=== PATIENT | female | born 1970 ===

== ENCOUNTER 2023-02-19 17:53 | Emergency (ER) | payer SELFPAY ==
[~2023-02-19] VITALS: Ht 154 cm; Wt 77.0 kg
--- NOTE | 2023-02-19 18:05 | ED Abdominal Pain ---
General Chief Complaint: Chest Pain Stated Complaint: CP Nursing Triage Note: ARRIVED VIA EMS WITH COMPLAINTS OF CHEST PAIN AT 1615 TODAY WHILE MOVING. PT STATES HER BIRTHDAY IS . WHEN TOLD THERE WAS NOT 31 DAYS IN JUNE SHE STATES FAMILY IS COMING WHO CAN TELL US WHEN HER BDAY IS. Source of Information: Patient Exam Limitations: No Limitations (LEONA HANSON) History of Present Illness Date Seen by Provider: Feb 19, 2023 Time Seen by Provider: 18:02 Initial Comments Patient is a 52-year-old female with history of presents ED with upper abdominal pain. This started around 415. She states she was moving boxes at the time. Pain is described as sharp. No radiation. She has no shortness of breath. Denies of any nausea vomiting diarrhea. Denies history of similar type pain. Has not been able to eat since the pain. She did receive a full aspirin by EMS. She denies of any recent travels or surgeries. No known cardiac history or history of COPD, asthma or smoking. Denies of any medical problems. Denies of any recent travels or surgeries. Patient is speaking seed packer was used. Denies dysuria, materia, increased urine frequency, fever, chills, body aches (LEONA HANSON) Allergies and Home Medications Allergies Coded Allergies: No Known Drug Allergies (Unverified , 02/19/23) Patient Home Medication List Home Medication List Reviewed: Yes (LEONA HANSON) Review of Systems Review of Systems Constitutional: No chills, No diaphoresis, No fever, No malaise, No weakness EENTM: No Double Vision, No Eye Pain Respiratory: Denies Cough, Denies Orthopnea; Shortness of Air Cardiovascular: Chest Pain Gastrointestinal: Abdominal Pain; Denies Diarrhea, Denies Nausea Genitourinary: Denies Burning, Denies Discharge, Denies Drainage, Denies Frequency Musculoskeletal: No back pain, No joint pain Skin: No change in color (LEONA HANSON) All Other Systems Reviewed Negative Unless Noted: Yes (LEONA HANSON) Physical Exam Vital Signs Vital Signs - First Documented 02/19/23 17:53 Temp 36.8 Pulse 80 Resp 16 B/P (MAP) 131/73 (92) Pulse Ox 96 O2 Delivery Room Air (BRANDI WISEMAN DO) Vital Signs Capillary Refill : Less Than 3 Seconds (LEONA HANSON) Height/Weight/BMI Height: '" Weight: lbs. oz. kg; 32.00 BMI Method: General Appearance: WD/WN, no apparent distress HEENT: PERRL/EOMI, normal ENT inspection, TMs normal, pharynx normal Neck: non-tender, full range of motion, supple Respiratory: chest non-tender, lungs clear, normal breath sounds, no respiratory distress, no accessory muscle use Cardiovascular: regular rate, rhythm, no edema, no gallop Gastrointestinal: normal bowel sounds, soft, no organomegaly, tenderness (epiGastric tenderness.) Extremities: normal range of motion, non-tender, normal inspection Back: normal inspection, no CVA tenderness, no vertebral tenderness Neurologic/Psychiatric: handbag parts cutter II-XII nml as tested, no motor/sensory deficits, alert, normal mood/affect, oriented x 3 Skin: normal color, warm/dry (LEONA HANSON) Progress/Results/Core Measures Results/Orders Lab Results Laboratory Tests Test 02/19/23 17:59 Range/Units White Blood Count 10.4 4.3-11.0 10^3/uL Red Blood Count 4.82 3.80-5.11 10^6/uL Hemoglobin 13.9 11.5-16.0 g/dL Hematocrit 42 35-52 % Mean Corpuscular Volume 87 80-99 fL Mean Corpuscular Hemoglobin 29 25-34 pg Mean Corpuscular Hemoglobin Concent 33 32-36 g/dL Red Cell Distribution Width 12.8 10.0-14.5 % Platelet Count 278 130-400 10^3/uL Mean Platelet Volume 10.6 9.0-12.2 fL Immature Granulocyte % (Auto) 0 % Neutrophils (%) (Auto) 57 42-75 % Lymphocytes (%) (Auto) 33 12-44 % Monocytes (%) (Auto) 8 0-12 % Eosinophils (%) (Auto) 1 0-10 % Basophils (%) (Auto) 0 0-10 % Neutrophils # (Auto) 6.0 1.8-7.8 10^3/uL Lymphocytes # (Auto) 3.5 1.0-4.0 10^3/uL Monocytes # (Auto) 0.8 0.0-1.0 10^3/uL Eosinophils # (Auto) 0.1 0.0-0.3 10^3/uL Basophils # (Auto) 0.0 0.0-0.1 10^3/uL Immature Granulocyte # (Auto) 0.0 0.0-0.1 10^3/uL Prothrombin Time 12.3 12.2-14.7 SEC INR Comment 0.9 0.8-1.4 Activated Partial Thromboplast Time 20 L 24-35 SEC Sodium Level 139 135-145 MMOL/L Potassium Level 3.1 L 3.6-5.0 MMOL/L Chloride Level 106 98-107 MMOL/L Carbon Dioxide Level 23 21-32 MMOL/L Anion Gap 10 5-14 MMOL/L Blood Urea Nitrogen 16 7-18 MG/DL Creatinine 0.86 0.60-1.30 MG/DL Estimat Glomerular Filtration Rate 82 BUN/Creatinine Ratio 19 Glucose Level 173 H 70-105 MG/DL Calcium Level 9.1 8.5-10.1 MG/DL Corrected Calcium 9.3 8.5-10.1 MG/DL Magnesium Level 2.0 1.6-2.4 MG/DL Total Bilirubin 0.7 0.1-1.0 MG/DL Aspartate Amino Transf (AST/SGOT) 92 H 5-34 U/L Alanine Aminotransferase (ALT/SGPT) 64 H 0-55 U/L Alkaline Phosphatase 91 40-136 U/L Myoglobin 34.7 10.0-92.0 NG/ML Troponin I < 0.028 <0.028 NG/ML B-Type Natriuretic Peptide 37.4 <100.0 PG/ML Total Protein 7.4 6.4-8.2 GM/DL Albumin 3.7 3.2-4.5 GM/DL Lipase 41 8-78 U/L (BOWEN,BRANDI K DO) Vital Signs/I&O 02/19/23 02/19/23 17:53 20:25 Temp 36.8 Pulse 80 74 Resp 16 18 B/P (MAP) 131/73 (92) 113/70 Pulse Ox 96 98 O2 Delivery Room Air (BOWEN,BRANDI K DO) Blood Pressure Mean: 92 Comment Sinus rhythm, 69 bpm, QRS duration 89 MS, QTc 408 MS. (LEONA HANSON) Departure Communication (PCP) Differential diagnosis of gastritis, pancreatitis, cholecystitis, ACS, pericarditis. Patient is speaking. Complaining of upper abdominal pain acute onset this afternoon. She was lifting boxes at the time. No known cardiac history. Denies history of hypertension, diabetes, high cholesterol or smoking. History of . Patient was not eating at the time. Has not attempted to eat since the pain started. Due to location of pain, cardiac work- up with added CBC, CMP and lipase. Patient was not tachycardic, hypoxic or febrile. EKG showed normal sinus rhythm without evidence of ST elevation or depression. Troponin negative. BNP negative chest x-ray unremarkable. Received full aspirin by EMS. Tenderness to right upper and epigastric. CBC showed normal white blood count. Chemistry showed potassium 3.1. Received 40 mEq of potassium. Slight elevated liver enzymes. Normal lipase. CT abdomen and pelvis was positive for cholecystolithiasis. CT abdomen pelvis was otherwise unremarkable. Patient received IV fentanyl. Denies of any urinary symptoms. Patient is currently pain-free. Suspect that this is likely secondary to gastritis versus biliary colic. Discussed taking Tums, Pepcid at home. Discussed gallbladder diet changes. May consider Tylenol or ibuprofen as needed for pain. If any worsening pain she will need to return back to ED. Provided outpatient follow-up with general surgery for further evaluation such as ultrasound versus HIDA scan if this pain progress. Discussed avoiding fatty foods, spicy foods. Avoid eating out late at night. She states her diet has not been as good lately. Salt Manager was used. She feels comfortable to go home. Return precaution were discussed. Discussed follow-up with your PCP in 2 days for reevaluation. (LEONA HANSON) Impression Primary Impression: Cholecystolithiasis Disposition: HOME, SELF-CARE Condition: Stable Departure-Patient Inst. Decision time for Depature: 19:53 (LEONA HANSON) Referrals: [facility]/LULU ZULUAGA DO Patient Instructions: Gallbladder Diet, Gallstones Add. Discharge Instructions: Recommend avoiding fatty foods, spicy foods. Recommend follow-up with general surgery for further evaluation. May take some Tylenol or ibuprofen for pain. All discharge instructions reviewed with patient and/or family. Voiced understanding. ATTENDING PHYSICIAN NOTE: I WAS PHYSICALLY PRESENT ER PHYSICIAN, BUT I WAS NOT INVOLVED IN ANY DECISION MAKING OR ANY CARE OF THIS PATIENT, AND I AM NOT COLLABORATING PHYSICIAN. (BRANDI WISEMAN DO) LEONA HANSON Feb 19, 2023 18:05 BRANDI WISEMAN DO Feb 20, 2023 07:17
[2023-02-19 18:14] LABS: BASOPHILS % (AUTO) 0 % (0-10); EOSINOPHILS # (AUTO) 0.1 10^3/uL (0.0-0.3); EOSINOPHILS % (AUTO) 1 % (0-10); HEMATOCRIT 42 % (35-52); HEMOGLOBIN 13.9 g/dL (11.5-16.0); LYMPHOCYTES # (AUTO) 3.5 10^3/uL (1.0-4.0); LYMPHOCYTES % (AUTO) 33 % (12-44); MEAN CORPUSCULAR HEMOGLOBIN 29 pg (25-34); MEAN CORPUSCULAR HGB CONC 33 g/dL (32-36); MEAN CORPUSCULAR VOLUME 87 fL (80-99); MEAN PLATELET VOLUME 10.6 fL (9.0-12.2); MONOCYTES # (AUTO) 0.8 10^3/uL (0.0-1.0); MONOCYTES % (AUTO) 8 % (0-12); NEUTROPHILS % (AUTO) 57 % (42-75); PLATELET COUNT 278 10^3/uL (130-400); WHITE BLOOD COUNT 10.4 10^3/uL (4.3-11.0)
[2023-02-19 18:16] LABS: ALBUMIN 3.7 GM/DL (3.2-4.5); CHLORIDE 106 MMOL/L (98-107); POTASSIUM 3.1 MMOL/L (3.6-5.0); SODIUM 139 MMOL/L (135-145)
[2023-02-19 18:17] LABS: INR 0.9 (0.8-1.4); PROTHROMBIN TIME PATIENT 12.3 SEC (12.2-14.7)
[2023-02-19 18:18] LABS: CALCIUM 9.1 MG/DL (8.5-10.1)
[2023-02-19 18:19] LABS: GLUCOSE 173 MG/DL (70-105); TOTAL PROTEIN 7.4 GM/DL (6.4-8.2)
[2023-02-19 18:20] LABS: CARBON DIOXIDE 23 MMOL/L (21-32)
[2023-02-19 18:21] LABS: BILIRUBIN,TOTAL 0.7 MG/DL (0.1-1.0)
[2023-02-19 18:22] LABS: ALKALINE PHOSPHATASE 91 U/L (40-136)
[2023-02-19 18:23] LABS: CREATININE SERUM 0.86 MG/DL (0.60-1.30); GFR ESTIMATED 82
[2023-02-19 18:24] LABS: BUN/CREATININE RATIO 19
[2023-02-19 18:25] LABS: ALANINE AMINOTRANSFERASE 64 U/L (0-55)
[2023-02-19 18:26] LABS: LIPASE 41 U/L (8-78)
[2023-02-19] MEDS ORDERED: fentaNYL INJECTION 100 MCG/2 ML VIAL IVP STA (18:28)
--- NOTE | 2023-02-19 18:53 | Diagnostic Imaging Report ---
INDICATION: Chest pain Portable chest 6:36 PM Heart and mediastinum are normal. Lungs are clear. There are no effusions or pneumothoraces. IMPRESSION: No acute abnormalities in the chest. Dictated by: Dictated on workstation # [id number]
[2023-02-19] MEDS ORDERED: HOLD METFORMIN - RECEIVED CONTRAST 20 ML VIAL IV SCH (19:00)
[2023-02-19] MEDS ORDERED: NS 100 ML (IVPB) BAG IV ONE (19:00)
[2023-02-19] MEDS ORDERED: IOHEXOL 350 MG/ML 100 ML (OMNIPAQUE 350) VIAL IV ONE (19:00)
--- NOTE | 2023-02-19 19:32 | Diagnostic Imaging Report ---
PROCEDURE: CT abdomen and pelvis with contrast. TECHNIQUE: Multiple contiguous axial images were obtained through the abdomen and pelvis after administration of intravenous contrast. Auto Exposure Controls were utilized during the CT exam to meet ALARA standards for radiation dose reduction. All CT scans use one or more of the following dose optimizing techniques: automated exposure control, MA and/or KvP adjustment based on patient size and exam type or iterative reconstruction. INDICATION: Abdominal pain Lung bases are clear. Liver appears normal. There are several stones in the gallbladder. Pancreas is normal. Spleen is unremarkable. Adrenals are normal. Kidneys appear normal. The appendix is normal. Small bowel is not dilated. Colon is unremarkable. Uterus and ovaries appear normal. Urinary bladder is normal. There is no intraperitoneal free air or free fluid. IMPRESSION: Cholecystolithiasis. Dictated by: Dictated on workstation # [id number]
[2023-02-19 20:25] VITALS: BP 113/70
[2023-02-21] MEDS ORDERED: DOCU-143 PO (12:45)
[2023-02-21] MEDS ORDERED: ACHD5005 PO (12:45)
== END 2023-02-19 20:35 | disposition home or self-care (01) ==
LOC: ER 17:54 → EDBD 17:54 → ER 20:35
DX: K80.20 Calculus of gallbladder without cholecystitis without obstruction (principal); E87.6 Hypokalemia
CPT/HCPCS: 36415; 71045; 74177; 80053; 83690; 83735; 83874; 83880; 84484; 85025; 85610; 85730; 93005; 93041; 96374

== ENCOUNTER 2023-02-19 23:22 | Observation (INO) | payer SELFPAY ==
[~2023-02-19] VITALS: Ht 165.1 cm; Wt 93.6 kg
[2023-02-19] MEDS ORDERED: fentaNYL INJ 100 MCG/2 ML AMP IVP STA (23:42)
[2023-02-19] MEDS ORDERED: ONDANSETRON 4 MG/2 ML (SDV) Z0FRAN IVP ONE (23:45)
[2023-02-19] MEDS ORDERED: LACTATED RINGERS 1,000 ML IV ONE (23:45)
[2023-02-20] VITALS (7 sets, daily range): BP systolic 130–178; BP diastolic 81–89
[2023-02-20] MEDS: fentaNYL INJ 100 MCG/2 ML AMP IV PRN ×4 (02:15→16:04)
[2023-02-20] MEDS ORDERED: ONDANSETRON 4 MG/2 ML (SDV) Z0FRAN IV PRN (02:15)
[2023-02-20] MEDS: D5 1/2 NS W/KCL 20 MEQ/L 1,000 ML IV SCH ×4 (03:28→22:09)
[2023-02-20 05:48] LABS: BASOPHILS % (AUTO) 0 % (0-10); EOSINOPHILS % (AUTO) 1 % (0-10); HEMATOCRIT 42 % (35-52); HEMOGLOBIN 13.8 g/dL (11.5-16.0); LYMPHOCYTES # (AUTO) 1.5 10^3/uL (1.0-4.0); LYMPHOCYTES % (AUTO) 24 % (12-44); MEAN CORPUSCULAR HEMOGLOBIN 28 pg (25-34); MEAN CORPUSCULAR HGB CONC 33 g/dL (32-36); MEAN CORPUSCULAR VOLUME 86 fL (80-99); MONOCYTES # (AUTO) 0.6 10^3/uL (0.0-1.0); MONOCYTES % (AUTO) 10 % (0-12); NEUTROPHILS # (AUTO) 4.1 10^3/uL (1.8-7.8); NEUTROPHILS % (AUTO) 65 % (42-75); PLATELET COUNT 264 10^3/uL (130-400); WHITE BLOOD COUNT 6.3 10^3/uL (4.3-11.0)
[2023-02-20 05:59] LABS: ALBUMIN 3.5 GM/DL (3.2-4.5)
[2023-02-20 06:00] LABS: POTASSIUM 3.7 MMOL/L (3.6-5.0)
[2023-02-20 06:01] LABS: CALCIUM 8.9 MG/DL (8.5-10.1)
[2023-02-20 06:04] LABS: BILIRUBIN,TOTAL 1.4 MG/DL (0.1-1.0)
[2023-02-20 06:05] LABS: CREATININE SERUM 0.68 MG/DL (0.60-1.30)
[2023-02-20 06:06] LABS: INR 0.9 (0.8-1.4); PROTHROMBIN TIME PATIENT 12.5 SEC (12.2-14.7)
--- NOTE | 2023-02-20 06:16 | ED Abdominal Pain ---
General Chief Complaint: Abdominal/GI Problems Stated Complaint: CHOLELITHIASIS Nursing Triage Note: pt ambulatory to room. triage done with use of correspondence dictator. pt states she was diagnosed with gall stones earlier today. states she has had increased abdominal pain since being discharged home. pt states she also had nausea and an episode of vomiting. Sepsis Screen: No Definite Risk Source of Information: Patient (VIA ASSISTANT DISTRIBUTION MANAGER), Outreach And Education Social Worker (VIDEO ASSISTANT DISTRIBUTION MANAGER) History of Present Illness Date Seen by Provider: Feb 19, 2023 Time Seen by Provider: 23:44 Initial Comments PT ARRIVES VIA POV FROM HOME PT WAS SEEN EARLIER THIS EVENING IN ER FOR ABDOMINAL PAIN THAT BEGAN AROUND 161 TODAY SHE WAS DIAGNOSED WITH CHOLELITHIASIS, WAS GIVEN PAIN MEDICATION IN THE ER AND FELT MUCH BETTER, AND WAS GIVEN INSTRUCTIONS TO FOLLOW UP WITH SURGEON OUTPATIENT. HER LABS WERE FAIRLY UNREMARKABLE SINCE GETTING HOME, PT HAS HAD RETURN OF PAIN AND NAUSEA AND VOMITED X 1 NO FEVER NO HISTORY OF SIMILAR, PRIOR TO TODAY NO CHRONIC MEDICAL PROBLEMS AND HER ONLY SURGERY WAS A SHE HAD NOT HAD ANY PRIOR VISITS HERE BEFORE TODAY Allergies and Home Medications Allergies Coded Allergies: No Known Drug Allergies (Unverified , 02/19/23) Patient Home Medication List Home Medication List Reviewed: Yes Review of Systems Review of Systems Constitutional: no symptoms reported Gastrointestinal: See HPI, Abdominal Pain, Nausea, Vomiting Past Mywnony-Pyexmp-Ginoqw Hx Patient Social History Tobacco Use?: No Smoking Status: Never a Smoker Smokeless Tobacco Frequency: Never a User Use of E-Cig and/or Vaping dev: No Substance use?: No Alcohol Use?: No Pt feels they are or have been: No Immunizations Up To Date Influenza Vaccine Up-to-Date: No; Not Current Past Medical History Surgery/Hospitalization HX: Surgeries: Yes Section Respiratory: No Cardiac: No Reproductive Disorders: No Genitourinary: No Gastrointestinal: No Musculoskeletal: No Endocrine: No HEENT: No Cancer: No Psychosocial: No Integumentary: No Blood Disorders: No Physical Exam Vital Signs Vital Signs - First Documented 02/19/23 23:45 Pulse 77 Resp 19 B/P (MAP) 147/83 (104) Pulse Ox 99 Capillary Refill : Height/Weight/BMI Height: '" Weight: lbs. oz. kg; 34.33 BMI Method: General Appearance: WD/WN, other (MOANING, WAILING, HOLDING EPIGSTRIC AREA AND WALKING SLOWLY AND SLIGHTLY BENT AT WAIST. ) Respiratory: normal breath sounds, no respiratory distress, no accessory muscle use Cardiovascular: regular rate, rhythm, no murmur Gastrointestinal: soft; No distended; guarding (SOME); No rebound; tenderness (MODERATE EPIGASTRIC TENDERNESS); No hernia, No mass Extremities: normal inspection Back: no CVA tenderness Neurologic/Psychiatric: community planner II-XII nml as tested, no motor/sensory deficits, alert, oriented x 3 Skin: normal color (), warm/dry; No rash Progress/Results/Core Measures Results/Orders Lab Results Laboratory Tests Test 02/20/23 05:15 Range/Units White Blood Count 6.3 4.3-11.0 10^3/uL Red Blood Count 4.87 3.80-5.11 10^6/uL Hemoglobin 13.8 11.5-16.0 g/dL Hematocrit 42 35-52 % Mean Corpuscular Volume 86 80-99 fL Mean Corpuscular Hemoglobin 28 25-34 pg Mean Corpuscular Hemoglobin Concent 33 32-36 g/dL Red Cell Distribution Width 12.9 10.0-14.5 % Platelet Count 264 130-400 10^3/uL Mean Platelet Volume 11.0 9.0-12.2 fL Immature Granulocyte % (Auto) 0 % Neutrophils (%) (Auto) 65 42-75 % Lymphocytes (%) (Auto) 24 12-44 % Monocytes (%) (Auto) 10 0-12 % Eosinophils (%) (Auto) 1 0-10 % Basophils (%) (Auto) 0 0-10 % Neutrophils # (Auto) 4.1 1.8-7.8 10^3/uL Lymphocytes # (Auto) 1.5 1.0-4.0 10^3/uL Monocytes # (Auto) 0.6 0.0-1.0 10^3/uL Eosinophils # (Auto) 0.0 0.0-0.3 10^3/uL Basophils # (Auto) 0.0 0.0-0.1 10^3/uL Immature Granulocyte # (Auto) 0.0 0.0-0.1 10^3/uL Sodium Level 139 135-145 MMOL/L Potassium Level 3.7 3.6-5.0 MMOL/L Chloride Level 108 H 98-107 MMOL/L Carbon Dioxide Level 22 21-32 MMOL/L Anion Gap 9 5-14 MMOL/L Blood Urea Nitrogen 9 7-18 MG/DL Creatinine 0.68 0.60-1.30 MG/DL Estimat Glomerular Filtration Rate 105 BUN/Creatinine Ratio 13 Glucose Level 138 H 70-105 MG/DL Calcium Level 8.9 8.5-10.1 MG/DL Corrected Calcium 9.3 8.5-10.1 MG/DL Total Bilirubin 1.4 H 0.1-1.0 MG/DL Aspartate Amino Transf (AST/SGOT) 716 H 5-34 U/L Alanine Aminotransferase (ALT/SGPT) 393 H 0-55 U/L Alkaline Phosphatase 146 H 40-136 U/L Total Protein 7.0 6.4-8.2 GM/DL Albumin 3.5 3.2-4.5 GM/DL Amylase Level 42 25-125 U/L Lipase 31 8-78 U/L My Orders Orders - BRANDI WISEMAN DO Ed Iv/Invasive Line Start (02/19/23 23:42) Monitor-Rhythm Ecg Trace Only (02/19/23 23:42) Ed Iv/Invasive Line Start (02/19/23 23:42) Lactated Ringers (Lr 1000 Ml Iv Solution (02/19/23 23:45) Fentanyl Inj (Sublimaze Injection) (02/19/23 23:42) Ondansetron Injection (Zofran Injectio (02/19/23 23:45) Medications Given in ED Current Medications Medications Dose Ordered Sig/Seth Route Start Time Stop Time Status Last Admin Dose Admin Fentanyl Citrate 50 mcg Q2H PRN IV 02/20/23 02:15 02/20/23 04:19 50 MCG Lactated Ringer's 1,000 ml @ 0 mls/hr Q0M ONCE IV 02/19/23 23:45 02/19/23 23:46 DC 02/19/23 23:56 999 MLS/HR Ondansetron HCl 4 mg ONCE ONCE IVP 02/19/23 23:45 02/19/23 23:46 DC 02/19/23 23:55 4 MG Vital Signs/I&O 02/19/23 02/20/23 02/20/23 02/20/23 23:45 00:58 00:58 03:23 Temp 36.7 36.2 Pulse 77 68 70 Resp 19 20 20 B/P (MAP) 147/83 (104) 173/82 (112) 178/89 (118) Pulse Ox 99 97 97 97 O2 Delivery Room Air Room Air Room Air 02/20/23 02/20/23 04:35 04:50 Temp 36.2 Pulse 64 Blood Pressure Mean: 118 Progress Progress Note : Progress Note COMPUTER SYSTEM SHUT DOWN DURING PT'S ER STAY GIVEN: -IV FLUIDS -FENTANYL -ZOFRAN SYMPTOMS IMPROVED WITH THE ABOVE MEDICATIONS VITALS STABLE, AND PT IS AFEBRILE REVIEWED PRIOR ER RECORD INCLUDING LABS AND CT SCAN. CBC WAS NORMAL CMP WITH K 3.1, NORMAL BILIRUBIN 0.7, NORMAL LIPASE. VERY MINIMALLY ELEVATED LFT'S -AST 92, ALT 64. TROPONIN NEGATIVE LABS NOT REPEATED AT THIS TIME, PT WAS JUST DISMISSED A SHORT TIME AGO. CT SCAN REPORT OF GALLSTONES, WITH NO MENTION OF STONES IN BILE DUCT OR ANY DUCTAL DILATION OR EVIDENCE OF INFLAMMATION OF GALLBLADDER OR WALL THICKENING. NO OTHER VISITS HERE DISCUSSED NEED FOR ADMIT AND PT IS AGREEABLE TO PLAN Departure Communication (Admissions) 1949--SPOKE WITH DR. REHMAN, SURGEON, ACCEPTS PT FOR ADMIT Impression Primary Impression: Cholelithiasis Additional Impression: Intractable abdominal pain Disposition: ADMITTED INPATIENT Condition: Improved Admissions Decision to Admit Reason: Admit from ER (General) Decision to Admit/Date: Feb 19, 2023 Time/Decision to Admit Time: 23:50 Departure-Patient Inst. Referrals: NO,LOCAL PHYSICIAN (PCP) Primary Care Physician BRANDI WISEMAN DO Feb 20, 2023 06:16
[2023-02-20] MEDS: PANTOPRAZOLE 40 MG (PROTONIX) VIAL IV SCH (08:56)
[2023-02-20] MEDS ORDERED: PIPERACILLIN SODIUM/TAZOBACTAM 4.5 GM in NS (IVPB) 100 ML IV NR (16:00)
--- NOTE | 2023-02-20 17:41 | History & Physical-Surgical ---
History of Present Illness History of Present Illness Reason for visit/HPI Chief complaint epigastric abdominal pain Patient is a 52-year-old female who yesterday began having pain in the epigastric area. Nothing seems brought it on. Nothing seems to make it better. It is a gnawing type pain. Patient states that the pain was a 10 out of 10. Pain medication did help some. Patient had a CT scan that was consistent with cholelithiasis. No other findings. She had some nausea and emesis. She has been n.p.o. She has not had any prior episodes of her symptoms like this. She is denies any fever sweats chills shortness of breath or chest pain. Date of Admission Feb 20, 2023 at 00:56 Date Seen by a Provider: Feb 20, 2023 Time Seen by a Provider: 15:30 I consulted on this patient on 02/20/23 17:40 Attending Physician Bonnie,Local Physician Admitting Physician Admitting Physician: Lulu Salinas DO Attending Physician: Lulu Salinas DO Consult Allergies and Home Medications Allergies Coded Allergies: No Known Drug Allergies (Unverified , 02/19/23) Patient Home Medication List Home Medication List Reviewed: Yes Past Udgulpm-Fddbrh-Knfxqc Hx Patient Social History Smoking Status: Never a Smoker Alcohol Use?: No Surgeries History of Surgeries: Yes Surgeries: Section Respiratory History of Respiratory Disorde: No Cardiovascular History of Cardiac Disorders: No Reproductive System Hx Reproductive Disorders: No Genitourinary History of Genitourinary Disor: No Gastrointestinal History of Gastrointestinal Di: No Musculoskeletal History of Musculoskeletal Dis: No Endocrine History of Endocrine Disorders: No HEENT History of HEENT Disorders: No Cancer History of Cancer: No Psychosocial History of Psychiatric Problem: No Integumentary History of Skin or Integumenta: No Blood Transfusions History of Blood Disorders: No Reviewed Nursing Assessment Reviewed/Agree w Nursing PMH: Yes Family Medical History Significant Family History: No Pertinent Family Hx Review of Systems Constitutional: No fever, No weakness EENTM: No blurred vision, No double vision Respiratory: No dyspnea on exertion, No short of breath Cardiovascular: No chest pain, No palpitations Gastrointestinal: abdominal pain (epigastric), nausea, vomiting Genitourinary: No decreased output, No discharge Musculoskeletal: No back pain, No joint pain Skin: No change in color, No change in hair/nails Psychiatric/Neurological: Denies Anxiety, Denies Depressed, Denies Emotional Problems All Other Systems Reviewed Negative Unless Noted: Yes (Negative excepted noted.) Physical Exam Vital Signs Vital Signs - First Documented 02/19/23 23:45 Pulse 77 Resp 19 B/P (MAP) 147/83 (104) Pulse Ox 99 Capillary Refill : Height, Weight, BMI Height: '" Weight: lbs. oz. kg; 34.33 BMI Method: General Appearance: No Apparent Distress, WD/WN HEENT: PERRL/EOMI, Normal ENT Inspection Neck: Normal Inspection, Non Tender Respiratory: Chest Non Tender, No Accessory Muscle Use, No Respiratory Distress Cardiovascular: Regular Rate, Rhythm, No JVD Gastrointestinal: Soft, Tenderness (epigastric area) Rectal: Deferred Back: No CVA Tenderness, No Vertebral Tenderness Extremity: Normal Inspection, Normal Range of Motion, Non Tender Neurologic/Psychiatric: Alert, Oriented x3, No Motor/Sensory Deficits Skin: Normal Color, Warm/Dry Lymphatic: No Adenopathy Data Review Labs Laboratory Tests 02/20/23 05:15: White Blood Count 6.3, Red Blood Count 4.87, Hemoglobin 13.8, Hematocrit 42, M andreas Corpuscular Volume 86, Mean Corpuscular Hemoglobin 28, Mean Corpuscular Hemoglobin Concent 33, Red Cell Distribution Width 12.9, Platelet Count 264, Mean Platelet Volume 11.0, Immature Granulocyte % (Auto) 0, Neutrophils (%) (Auto) 65, Lymphocytes (%) (Auto) 24, Monocytes (%) (Auto) 10, Eosinophils (%) (Auto) 1, Basophils (%) (Auto) 0, Neutrophils # (Auto) 4.1, Lymphocytes # (Auto) 1.5, Monocytes # (Auto) 0.6, Eosinophils # (Auto) 0.0, Basophils # (Auto) 0.0, Immature Granulocyte # (Auto) 0.0, Prothrombin Time 12.5, INR Comment 0.9, Activated Partial Thromboplast Time 25, Sodium Level 139, Potassium Level 3.7, Chloride Level 108H, Carbon Dioxide Level 22, Anion Gap 9, Blood Urea Nitrogen 9, Creatinine 0.68, Estimat Glomerular Filtration Rate 105, BUN/Creatinine Ratio 13, Glucose Level 138H, Calcium Level 8.9, Corrected Calcium 9.3, Total Bilirubin 1.4H, Aspartate Amino Transf (AST/SGOT) 716H, Alanine Aminotransferase (ALT/SGPT) 393H, Alkaline Phosphatase 146H, Total Protein 7.0, Albumin 3.5, Amylase Level 42, Lipase 31 Assessment/Plan Assessment/Plan Admission Diagonsis epigastric pain cholelithiasis Admission Status: Observation Assessment/Plan epigastric pain cholelithiasis discussed risk and benefits of laparoscopic cholecystectomy with intraoperative cholangiogram all other indicated procedures will place on Zosyn NPO after midnight surgery tomorrow. IV fluids pain control incentive spirometery LULU SALINAS DO Feb 20, 2023 17:40
[2023-02-20] MEDS: PIPERACILLIN SODIUM/TAZOBACTAM 4.5 GM in NS (IVPB) 100 ML IV SCH (22:07)
[2023-02-21] VITALS (16 sets, daily range): BP systolic 143–189; BP diastolic 82–93
[2023-02-21] MEDS: D5 1/2 NS W/KCL 20 MEQ/L 1,000 ML IV SCH ×3 (05:27→16:08)
[2023-02-21] MEDS: PIPERACILLIN SODIUM/TAZOBACTAM 4.5 GM in NS (IVPB) 100 ML IV SCH ×3 (05:37→22:54)
[2023-02-21] MEDS: PANTOPRAZOLE 40 MG (PROTONIX) VIAL IV SCH (07:54)
[2023-02-21] MEDS ORDERED: LIDOCAINE/EPI 1%-1:100,000 (XYLOCAINE) 20ML ONE (10:14)
--- NOTE | 2023-02-21 10:48 | Progress Note - Surgery ---
Subjective Date Seen by a Provider: Feb 21, 2023 Time Seen by a Provider: 09:22 Subjective/Events-last exam Feeling a little better. Little bit of pain compared to yesterday. NPO. Ready for surgery. Denies n/v fever sweats chills shortness of breath or chest pain. Objective Exam Vital Signs Date Time Temp Pulse Resp B/P (MAP) Pulse Ox O2 Delivery O2 Flow Rate FiO2 02/21/23 07:58 36.4 75 18 145/88 (107) 98 Room Air 02/21/23 07:30 69 02/21/23 03:48 36.8 63 18 143/85 (104) 94 Room Air 02/21/23 01:00 70 02/20/23 23:13 36.7 66 18 135/83 (100) 97 Room Air 02/20/23 21:47 Room Air 02/20/23 19:38 99 Room Air 02/20/23 19:14 36.9 70 18 130/81 (97) 95 Room Air 02/20/23 19:00 69 02/20/23 15:19 36.8 68 18 150/85 (106) 96 Room Air 02/20/23 13:00 70 02/20/23 11:23 36.3 65 18 147/85 (105) 95 Room Air I & O 02/21/23 07:00 Intake Total 500 ml Balance 500 ml Capillary Refill : General Appearance: No Apparent Distress, WD/WN HEENT: PERRL/EOMI, Normal ENT Inspection Neck: Normal Inspection, Non Tender Respiratory: Chest Non Tender, No Accessory Muscle Use, No Respiratory Distress Cardiovascular: Regular Rate, Rhythm, No JVD Gastrointestinal: soft; No distended, No rebound; tenderness (MODERATE EPIGASTRIC TENDERNESS); No hernia, No mass Extremity: Normal Inspection, Normal Range of Motion, Non Tender Neurologic/Psychiatric: Alert, Oriented x3, No Motor/Sensory Deficits Skin: Normal Color, Warm/Dry Lymphatic: No Adenopathy Assessment/Plan Assessment/Plan Assessment/Plan epigastric pain cholelithiasis discussed risk and benefits of laparoscopic cholecystectomy with intraoperative cholangiogram all other indicated procedures On Zosyn NPO surgery today IV fluids pain control incentive spirometery LULU REHMAN DO Feb 21, 2023 10:48
[2023-02-21] MEDS: LACTATED RINGERS 1,000 ML IV PRN ×2 (11:23→12:53)
[2023-02-21] MEDS ORDERED: ONDANSETRON 4 MG/2 ML (SDV) Z0FRAN ONE (11:29)
[2023-02-21] MEDS ORDERED: proPOfol 200 MG/20 ML (DIPRIVAN) VIAL IV ONE (11:29)
[2023-02-21] MEDS ORDERED: fentaNYL INJ 100 MCG/2 ML AMP ONE (11:29)
[2023-02-21] MEDS ORDERED: ROCURONIUM 50 MG/5 ML (ZEMURON) VIAL IV ONE (11:29)
[2023-02-21] MEDS ORDERED: SEVOFLURANE (ULTANE) 15 ML INHAL SOLN ONE ×2 (11:29→12:47)
[2023-02-21] MEDS ORDERED: LIDOCAINE PF 2% 5 ML (XYLOCAINE) VIAL ONE (11:29)
[2023-02-21] MEDS ORDERED: MIDAZOLAM 2 MG/2 ML (VERSED) VIAL ONE (11:29)
[2023-02-21] MEDS ORDERED: PHENYLEPHRINE 100 MCG/ML 10 ML (ANESTHESIA) SYR ONE (12:01)
[2023-02-21] MEDS ORDERED: LIDOCAINE/EPI 1%-1:100,000 (XYLOCAINE) 20ML INJ ONE (12:20)
[2023-02-21] MEDS ORDERED: IOHEXOL 300 MG/ML 30 ML (OMNIPAQUE 300) VIAL INJ ONE (12:21)
--- NOTE | 2023-02-21 12:43 | Progress Note-Post Operative ---
Post-Operative Progess Note Surgeon (s)/Supervisor Travel Trailer (s) Surgeon LULU REHMAN DO Supervisor Travel Trailer: Dr. Ferraro to assist in retraction dissection and closure. Pre-Operative Diagnosis cholelithiasis Post-Operative Diagnosis cholelithiasis, cholecystitis Procedure & Operative Findings Date of Procedure 02/21/23 Procedure Performed/Findings PROCEDURE: Laparoscopic cholecystectomy with intraoperative cholangiogram. COMPLICATIONS: None. PROCEDURE: The patient was taken to the operating suite and was prepped and draped in sterile fashion. A surgical pause was performed. Just superior to the umbilicus, a 12 mm incision was made. Dissection was taken down to the fascia, which was then scored and grasped with a Yousuf and the abdomen was then entered. A 0 Vicryl suture was placed in a rzjulv-by-ohktb fashion and a Mills trocar was placed and secured. Pneumoperitoneum was achieved. A 5mm trochar place in the subxyphoid and 2 in the right upper quadrant. The gallbladder was then grasped and elevated. Distended gallbladder and inflamed. Adhesions to the gallbladder were taken down with cautery/blunt dissection. The cystic duct, and cystic artery were then dissected out. Clip was placed on the distal portion of the cystic duct which was then partially transected. An arrow catheter was inserted into the duct. The cholangiogram was then performed. No filing defects and contrast made its way into the duodenum. Catheter removed. Clips were placed on proximal portion of the cystic duct and then the duct was then transected. Clips were placed along the proximal and distal portion of the cystic artery which was then transected. Hook cautery was used to dissect the gallbladder from the gallbladder fossa achieving hemostasis. The gallbladder was placed in an Endobag and removed through the 12 mm trocar site. The abdomen was then reinspected. Copious amounts of irrigation were used to irrigate the abdomen and there were no signs of active bleeding. Hemostasis had been achieved. The 12 mm fascial defect was then closed with 0 Vicryl suture that had been placed in a ovujyo-rw-whijf fashion. The abdomen was then desufflated, the trocars were removed. The abdomen was then washed and dried. The skin was then closed using 4-0 Monocryl in a subcuticular fashion. The abdomen was washed and dried and Skin Affix was place over incisions. Patient tolerated the procedure well without any complications and was taken to the recovery room in stable condition. Anesthesia Type general Estimated Blood Loss Estimated blood loss (mL): minimal Specimens/Packing Specimens Removed gallbladder LULU REHMAN DO Feb 21, 2023 12:43
[2023-02-21] MEDS ORDERED: DOCU-143 PO (12:45)
[2023-02-21] MEDS ORDERED: ACHD5005 PO (12:45)
--- NOTE | 2023-02-21 12:46 | Discharge Inst-Simple/Standard ---
Discharge Inst-Standard Discharge Medications New, Converted or Re-Newed RX: Transmitted to Pharmacy Patient Instructions/Follow Up Plan of Care/Instructions/FU: 2 weeks Rita Activity as Tolerated: No Discharge Diet: Regular Diet Other Inst to Patient Follow up Appt: Make appointment for 2 weeks. Instructions: No lifting greater than 10 pounds. No strenuous activity. May shower in 24 hours, no tub bath or soaking. Use incentive spirometer at home as directed. No Smoking Skin/Wound Care: You have special glue over incision, it will fall off on it's own. Symptoms to Report: Appetite Changes, Extremity Discoloration, Numbness/Tingling, Swelling Increased, Bleeding Excessive, Eyesight Changes, Pain Increased, Urine Color Change, Constipation(Persistent), Fever over 101 degree F, Pain/Pressure in chest, Urinating Difficulty, Cough Up/Vomit Blood, Heart Beat Irreg/Pounding, Pain/Pressure in jaw, Vaginal Bleeding Increase, Cramps in feet or legs, Lightheadedness, Pain/Pressure in shoulder, Diarrhea(Persistent), Memory Changes Suddenly, Questions/Concerns, Weight gain consecutive days, Dizziness/Fainting, Nausea/Vomiting, Shortness of Breath, Weight gain over 2 pounds. If eyes or skin turn yellow notify physician. If questions or concerns contact your physician Or seek help at emergency department. LULU REHMAN DO Feb 21, 2023 12:46
[2023-02-21] MEDS ORDERED: SUGAMMADEX 500 MG/5 ML VIAL (BRIDION) IV ONE (12:48)
[2023-02-21] MEDS ORDERED: HYDROmorphone 2 MG/ML VIAL (DILAUDID) ONE (13:00)
--- NOTE | 2023-02-21 13:08 | Anesthesia-General Post-Op ---
General Patient Condition Mental Status/LOC: Same as Preop Cardiovascular: Satisfactory Nausea/Vomiting: Absent Respiratory: Satisfactory Pain: Controlled Complications: Absent Post Op Complications Complications None Follow Up Care/Instructions Patient Instructions None needed. Anesthesia/Patient Condition Patient Condition Patient is doing well, no complaints, stable vital signs, no apparent adverse anesthesia problems. No complications reported per nursing. FRANCISCA DUMONT CRNA Feb 21, 2023 13:08
[2023-02-21] MEDS ORDERED: HYDROmorphone 2 MG/ML VIAL (DILAUDID) IV ONE (13:15)
[2023-02-21] MEDS ORDERED: ONDANSETRON 4 MG/2 ML (SDV) Z0FRAN IVP PRN (13:15)
[2023-02-21] MEDS ORDERED: PROMETHAZINE INJ 25 MG/ML (PHENERGAN) AMP IVP ONE (13:15)
[2023-02-21] MEDS ORDERED: KETOROLAC 30 MG/ML VIAL ONE (13:16)
[2023-02-21] MEDS: fentaNYL INJ 100 MCG/2 ML AMP IV PRN (14:34)
[2023-02-21] MEDS: HYDROcodone/APAP 5 MG/325 MG (LORTAB) TAB PO PRN ×2 (15:05→19:23)
[2023-02-21] MEDS ORDERED: HYDROcodone/APAP 5 MG/325 MG (LORTAB) TAB PO NR (16:00)
[2023-02-21] MEDS ORDERED: morphine INJ 4 MG/ML 1 ML (VIAL/SYRINGE) IVP PRN (17:00)
--- NOTE | 2023-02-21 17:04 | Diagnostic Imaging Report ---
EXAMINATION: Intraoperative cholangiogram TECHNIQUE: Intraoperative cholangiogram HISTORY: LAP CLARKE WITH GRAMS COMPARISON: None available. Findings/ impression: No apparent filling defect or contrast extravasation detected allowing for motion artifact. Findings: Dictated by: Dictated on workstation # [id number]
[2023-02-21] MEDS ORDERED: hydrALAZINE (APESOLINE) 20 MG/ML VIAL IV PRN (18:15)
[2023-02-22] MEDS: D5 1/2 NS W/KCL 20 MEQ/L 1,000 ML IV SCH ×2 (00:41→06:30)
[2023-02-22 04:12] VITALS: BP 130/80
[2023-02-22] MEDS: HYDROcodone/APAP 5 MG/325 MG (LORTAB) TAB PO PRN ×2 (04:16→09:26)
[2023-02-22] MEDS: PIPERACILLIN SODIUM/TAZOBACTAM 4.5 GM in NS (IVPB) 100 ML IV SCH (05:35)
[2023-02-22 05:41] LABS: BASOPHILS % (AUTO) 0 % (0-10); EOSINOPHILS % (AUTO) 0 % (0-10); HEMATOCRIT 47 % (35-52); HEMOGLOBIN 15.9 g/dL (11.5-16.0); LYMPHOCYTES # (AUTO) 1.2 10^3/uL (1.0-4.0); LYMPHOCYTES % (AUTO) 8 % (12-44); MEAN CORPUSCULAR HEMOGLOBIN 29 pg (25-34); MEAN CORPUSCULAR HGB CONC 34 g/dL (32-36); MEAN CORPUSCULAR VOLUME 85 fL (80-99); MEAN PLATELET VOLUME 10.7 fL (9.0-12.2); MONOCYTES % (AUTO) 7 % (0-12); NEUTROPHILS # (AUTO) 12.9 10^3/uL (1.8-7.8); NEUTROPHILS % (AUTO) 85 % (42-75); PLATELET COUNT 288 10^3/uL (130-400); WHITE BLOOD COUNT 15.2 10^3/uL (4.3-11.0)
[2023-02-22 05:57] LABS: ALBUMIN 3.5 GM/DL (3.2-4.5); CALCIUM 9.4 MG/DL (8.5-10.1); CREATININE SERUM 0.8 MG/DL (0.60-1.30); POTASSIUM 3.8 MMOL/L (3.6-5.0); TOTAL PROTEIN 7.3 GM/DL (6.4-8.2)
[2023-02-22 06:23] LABS: LYMPHOCYTES % (MANUAL) 13 %; MONOCYTES % (MANUAL) 5 %; NEUTROPHILS % (MANUAL) 82 %; RBC MORPH NORMAL
[2023-02-22 07:39] VITALS: BP 134/86
[2023-02-22] MEDS: PANTOPRAZOLE 40 MG (PROTONIX) VIAL IV SCH (09:26)
--- NOTE | 2023-02-22 10:09 | Progress Note - Surgery ---
LLUU AGUILAR 02/22/23 1009: Subjective Date Seen by a Provider: Feb 22, 2023 Time Seen by a Provider: 08:42 Subjective/Events-last exam Patient is seen this morning laying down in bed with company of her family. Her family helps translate for her during this visit. She states that she is having some dull pain and tenderness to her epigastic area. She states that she has been getting up and ambulating to the bathroom. She says that she has been urinating but has not passed any gas or had any bowel movements at this point. She is still on gelatin only diet with no solid foods. Her WBC has increased from 6.3 to 15.2 today, which is to be expected from her laperoscopic cholec ystecomy the day prior. Focused Exam Respiratory: Chest Non Tender, Lungs Clear, No Accessory Muscle Use, No Respiratory Distress Cardiovascular: Regular Rate, Rhythm, No Edema, No Gallop, No Murmur Skin: No rash, No ulcerations Objective Exam Vital Signs Date Time Temp Pulse Resp B/P (MAP) Pulse Ox O2 Delivery O2 Flow Rate FiO2 02/22/23 08:00 Room Air 02/22/23 07:39 37.0 105 18 134/86 (102) 93 Room Air 02/22/23 07:00 107 02/22/23 06:02 Room Air 0.00 02/22/23 04:12 37.2 95 20 130/80 (97) 94 Room Air 02/22/23 01:00 91 02/21/23 23:53 36.8 84 20 168/84 (112) 92 Room Air 02/21/23 20:02 70 02/21/23 20:00 99 Room Air 02/21/23 19:56 35.5 64 20 161/82 (108) 93 Nasal Cannula 5.00 5.00 02/21/23 16:45 36.1 62 22 187/93 (124) 95 Nasal Cannula 02/21/23 15:45 36.2 69 24 189/90 (123) 97 OxyMask 5.00 02/21/23 14:52 77 20 185/90 (121) 98 OxyMask 5.00 02/21/23 14:43 36.3 69 20 186/88 (120) 94 OxyMask 1.50 02/21/23 14:00 36.8 18 165/82 (109) 97 OxyMask 2.00 02/21/23 14:00 OxyMask 2.00 02/21/23 13:51 OxyMask 2.00 02/21/23 13:50 18 168/89 (115) 96 OxyMask 2.00 02/21/23 13:44 OxyMask 2.00 02/21/23 13:40 18 161/86 (111) 93 Room Air 02/21/23 13:33 OxyMask 2.00 02/21/23 13:30 18 159/90 (113) 99 OxyMask 4.00 02/21/23 13:22 OxyMask 4.00 02/21/23 13:20 18 155/87 (109) 100 OxyMask 6.00 02/21/23 13:10 18 161/85 (110) 99 OxyMask 6.00 02/21/23 13:10 OxyMask 6.00 02/21/23 13:08 18 160/85 (110) 98 OxyMask 6.00 02/21/23 12:56 36.6 18 164/83 (110) 100 OxyMask 6.00 02/21/23 12:56 OxyMask 6.00 I & O 02/22/23 07:00 Intake Total 1150 ml Balance 1150 ml Capillary Refill : General Appearance: No Apparent Distress, WD/WN HEENT: PERRL/EOMI Neck: Full Range of Motion, Non Tender Respiratory: Chest Non Tender, Lungs Clear, No Accessory Muscle Use, No Respiratory Distress Cardiovascular: Regular Rate, Rhythm, No Edema, No Gallop, No Murmur Gastrointestinal: soft; No distended, No rebound; tenderness (epigastric tenderness) Extremity: Normal Range of Motion, Non Tender, No Pedal Edema Neurologic/Psychiatric: Alert, Oriented x3 Skin: Warm/Dry; No Erythema Lymphatic: No Adenopathy (neck, supra and subclavicular. ) Results Lab Laboratory Tests 02/21/23 10:58: Urine Test NEGATIVE 02/22/23 05:21: White Blood Count 15.2H, Red Blood Count 5.51H, Hemoglobin 15.9, Hematocrit 47, Mean Corpuscular Volume 85, Mean Corpuscular Hemoglobin 29, Mean Corpuscular Hemoglobin Concent 34, Red Cell Distribution Width 13.3, Platelet Count 288, Mean Platelet Volume 10.7, Immature Granulocyte % (Auto) 1, Neutrophils (%) (Auto) 85H, Lymphocytes (%) (Auto) 8L, Monocytes (%) (Auto) 7, Eosinophils (%) (Auto) 0, Basophils (%) (Auto) 0, Neutrophils # (Auto) 12.9H, Lymphocytes # (Auto) 1.2, Monocytes # (Auto) 1.0, Eosinophils # (Auto) 0.0, Basophils # (Auto) 0.0, Immature Granulocyte # (Auto) 0.1, Neutrophils % (Manual) 82, Lymphocytes % (Manual) 13, Monocytes % (Manual) 5, Blood Morphology Comment NORMAL, Sodium Level 135, Potassium Level 3.8, Chloride Level 103, Carbon Dioxide Level 18L, Anion Gap 14, Blood Urea Nitrogen 9, Creatinine 0.80, Estimat Glomerular Filtration Rate 89, BUN/Creatinine Ratio 11, Glucose Level 174H, Calcium Level 9.4, Corrected Calcium 9.8, Total Bilirubin 5.0H, Aspartate Amino Transf (AST/SGOT) 780H, Alanine Aminotransferase (ALT/SGPT) 825H, Alkaline Phosphatase 272H, Total Protein 7.3, Albumin 3.5 Microbiology 02/20/23 MRSA Screen - Final, Complete MRSA not isolated Assessment/Plan Assessment/Plan Assessment/Plan Post Op Laparoscopic Cholecystectomy epigastric pain cholelithiasis Plan is to continue IV fluids, control her pain and have her do incentive spirometery. She is currently doing well overall and her family is wondering when she will be able to go home. DEV FERRARO DO 02/22/23 1201: Subjective Time Seen by a Provider: 11:48 Subjective/Events-last exam Pt seen and examined, family member translating. She states pain is much better. Review of Systems Pulmonary: No Dyspnea, No Cough Cardiovascular: No: Chest Pain, Palpitations Gastrointestinal: Abdominal Pain (minimal); No: Nausea, Vomiting Objective Exam General Appearance: No Apparent Distress, WD/WN HEENT: PERRL/EOMI Respiratory: Chest Non Tender, Lungs Clear, Normal Breath Sounds, No Accessory Muscle Use, No Respiratory Distress Cardiovascular: Regular Rate, Rhythm, No Murmur Gastrointestinal: soft; No rebound; tenderness (epigastric tenderness, better than yesterday) Skin: Erythema Assessment/Plan Assessment/Plan Assessment/Plan Status Post Laparoscopic Cholecystectomy epigastric pain - improved Plan is to DC IV fluids and DC home, continue incentive spirometery at home. Pain meds sent and pt will get work note. Supervisory-Addendum Brief Verification & Attestation Participated in pt care: history, MDM, physical Personally performed: exam, history, MDM, supervision of care Care discussed with: Medical Student Procedures: n/a Verification and Attestation of Medical Student E/M Service A PA student performed and documented this service. I then reviewed and verified all information documented by the medical student and made modifications to such information, when appropriate. I personally performed a physical exam, medical decision making and then discussed any differences between the notes and made revisions as necessary to create one note. Dev Ferraro , 02/22/23 , 12:01 LULU AGUILAR Feb 22, 2023 10:09 DEV FERRARO DO Feb 22, 2023 12:01
[2023-02-22 11:30] VITALS: BP 138/82
--- NOTE | 2023-02-22 16:06 | Consultation - Hospitalist ---
HPI History of Present Illness: HPI/Chief Complaint Perla Espinoza is a 52 year old female who was admitted 02/19 with acute cholecystitis due to cholelithiasis. She underwent laparoscopic cholecystectomy with intraoperative cholangiogram on 02/21. She is having pain and hypertensive post-operatively and the hospitalist service has been consulted. She is feeling much better this morning. She denies pain. She denies nausea and vomiting. She denies fevers. She has been able to tolerate clear liquids. She has not had a bowel movement yet. Source: patient, family Exam Limitations: language barrier (British, family translates) Date Seen 02/22/23 Attending Physician No,Local Physician PCP Admitting Physician: Justin Salinas DO Attending Physician: Justin Salinas DO Referring Physician Date of Admission Feb 20, 2023 at 00:56 Home Medications & Allergies Home Medications Reviewed patient Home Medication Reconciliation performed by pharmacy medication reconciliations oscillograph technician and/or nursing. Patients Allergies have been reviewed. Allergies Allergies Coded Allergies No Known Drug Allergies (Unverified02/19/23) Past Surjlca-Fkvgyu-Sehgdq Hx Patient Social History Tobacco Use?: No Smoking Status: Never a Smoker Smokeless Tobacco Frequency: Never a User Use of E-Cig and/or Vaping dev: No Substance use?: No Alcohol Use?: No Pt feels they are or have been: No Immunizations Up To Date Tetanus Booster (TDap): More Than 5 Years Hepatitis A: No Hepatitis B: No Current Status status: No status: No Advance Directives: No Communicates: Verbally Primary Language: British Preferred Spoken Language: British Is interpretation needed?: Yes Implanted or Applied Medical D: None Past Medical History Surgeries: Section Blood Disorders: No Family Medical History No Pertinent Family Hx Review of Systems Constitutional: no symptoms reported Respiratory: no symptoms reported Cardiovascular: no symptoms reported Physical Exam Physical Exam Vital Signs Vital Signs - First Documented 02/19/23 23:45 Pulse 77 Resp 19 B/P (MAP) 147/83 (104) Pulse Ox 99 Capillary Refill : Height, Weight, BMI Height: '" Weight: lbs. oz. kg; 34.33 BMI Method: General Appearance: No Apparent Distress, Obese HEENT: PERRL/EOMI, Pharynx Normal Neck: Normal Inspection, Non Tender, Supple Respiratory: Lungs Clear, Normal Breath Sounds, No Accessory Muscle Use, No Respiratory Distress Cardiovascular: Regular Rate, Rhythm, No Edema, No Murmur Gastrointestinal: Soft, Abnormal Bowel Sounds (hypoactive), Tenderness (LLQ) Back: No CVA Tenderness, No Vertebral Tenderness Extremity: Non Tender, No Pedal Edema Neurologic/Psychiatric: Alert, Oriented x3, Normal Mood/Affect Skin: Normal Color, Warm/Dry Results Results/Procedures Labs Laboratory Tests 02/22/23 05:21 Patient resulted labs reviewed. Imaging: Reviewed Imaging Report Assessment/Plan Assessment and Plan Assess & Plan/Chief Complaint Acute cholecystitis Cholelithiasis Elevated LFTs Hypertension Obesity Hypertension likely due to post-operative pain, now improved AST/ALT/T bili trending up Intraoperative cholangiogram negative No RUQ pain/tenderness Tolerating clears Discharge plan per primary Establish with PCP Diagnosis/Problems Diagnosis/Problems (1) Acute calculous cholecystitis Status: Acute (2) Elevated LFTs Status: Acute (3) Obesity Status: Chronic (4) HTN (hypertension) Status: Acute Qualifiers: Hypertension type: unspecified Qualified Codes: I10 - Essential (primary) hypertension CAROLEE SANTORO MD Feb 22, 2023 16:06
== END 2023-02-22 12:50 | disposition home or self-care (01) ==
LOC: EDUNIT# 23:22 → ER 23:25 → 4TH 02-20 00:56
PROVIDERS: ADMIT Surgery; ATTEND Surgery
DX: K80.00 Calculus of gallbladder with acute cholecystitis without obstruction (principal); I10 Essential (primary) hypertension; E66.9 Obesity, unspecified; Z68.34 Body mass index [BMI] 34.0-34.9, adult
CPT/HCPCS: 47563; 76000; 80053 ×2; 82150; 83690; 84703; 85007; 85025; 85027; 85610; 85730; 87081; 93041; 94664; 96374; 96375 ×3; 96376 ×3; 99284; G0378; 36415